=== PATIENT | male | born 2000 | race Caucasian/White ===

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

== ENCOUNTER 2023-05-15 20:56 | Emergency (ER) | payer BC, OTHER ==
[~2023-05-15] VITALS: Ht 172.7 cm; Wt 74.8 kg
[2023-05-15 20:58] VITALS: BP_SYST 152; PULSE 88; RESP 20; TEMP 98.4; O2SAT 100
[2023-05-15] MEDS: ONDANSETRON 4 MG ODT TAB PO ONE (22:16)
[2023-05-15] MEDS: LIDOCAINE PATCH 5% 1 EA TP ONE (22:17)
[2023-05-15] MEDS ORDERED: NAPR-690 PO (22:20)
[2023-05-15] MEDS: KETOROLAC TROMETHAMINE 60 MG/2 ML VIAL IM ONE (22:32)
[2023-05-15] MEDS: MORPHINE 4 MG INJ. 4 MG/ML VIAL IM ONE (22:41)
[2023-05-15 22:56] VITALS: BP_SYST 135; PULSE 89; RESP 20; TEMP 98.6; O2SAT 95
== END 2023-05-15 22:56 | disposition home or self-care (01) ==
LOC: SED 20:56
DX: S13.4XXA Sprain of ligaments of cervical spine, initial encounter (principal); Z79.899 Other long term (current) drug therapy; V00.311A Fall from snowboard, initial encounter; Y93.29 Activity, other involving ice and snow; Y92.89 Other specified places as the place of occurrence of the external cause; Y99.8 Other external cause status
CPT/HCPCS: 99285; 70450; 72125; 96372; Q0162; J1885; J2270